=== PATIENT | male | born 1955 | race Caucasian/White ===

== ENCOUNTER 2020-09-26 14:35 | Inpatient (IN) | payer OTHER ==
[~2020-09-26] VITALS: Ht 172.7 cm
[~2020-09-26 14:35] MED LIST: COZAAR25 MG; GLIPIZIDE5 MG; METFORMIN HCL500 MG; PLAVIX75 MG; ZOCOR20 MG
[2020-09-26] MEDS ORDERED: LANTUS SOL100 UNIT/1 SUBCUTANEO (15:19)
[2020-09-26] MEDS ORDERED: HUMALOG100 UNIT/2 SUBCUTANEO (15:20)
[2020-09-30] MEDS ORDERED: OMEPRAZOLE20 MG (13:52)
[2020-09-30] MEDS ORDERED: ST. JOSEPH ASPI81 M2 (13:52)
[2020-09-30] MEDS ORDERED: EZETIMIBE10 MG (13:52)
[2020-09-30] MEDS ORDERED: QUETIAPINE FUMA50 MG (13:52)
[2020-09-30] MEDS ORDERED: VITAMIN D350 MC3 (13:52)
[2020-10-26] MEDS ORDERED: INTESTINEX680 M1 PO (11:57)
[2020-10-26] MEDS ORDERED: FERROUS SU220 MG/5 M PO (11:57)
[2020-10-26] MEDS ORDERED: APETIGEN L790 MG/15 PO (11:58)
[2020-10-26] MEDS ORDERED: GABAPENTIN100 MG PO (11:59)
== END 2020-10-26 19:49 | DRG 624 ==
LOC: ER 14:35 → SEC-K 23:11 → SURH 09-27 00:53
PROVIDERS: ADMIT Internal Medicine; ATTEND Internal Medicine
PROC: CW2D1ZZ Tomographic (Tomo) Nuclear Medicine Imaging of Lower Extremity using Technetium 99m (Tc-99m) (ICD-10-PCS; 2020-09-27)
PROC: 0JBM0ZZ Excision of Left Upper Leg Subcutaneous Tissue and Fascia, Open Approach (ICD-10-PCS; principal; 2020-09-28)
PROC: 0JBL0ZZ Excision of Right Upper Leg Subcutaneous Tissue and Fascia, Open Approach (ICD-10-PCS; 2020-09-28)
PROC: 30233N1 Transfusion of Nonautologous Red Blood Cells into Peripheral Vein, Percutaneous Approach (ICD-10-PCS; 2020-10-01)
PROC: 0JBM0ZZ Excision of Left Upper Leg Subcutaneous Tissue and Fascia, Open Approach (ICD-10-PCS; 2020-10-08)
PROC: 0JBL0ZZ Excision of Right Upper Leg Subcutaneous Tissue and Fascia, Open Approach (ICD-10-PCS; 2020-10-08)
PROC: 0HBJXZZ Excision of Left Upper Leg Skin, External Approach (ICD-10-PCS; 2020-10-16)
PROC: 0HBHXZZ Excision of Right Upper Leg Skin, External Approach (ICD-10-PCS; 2020-10-23)
PROC: 02HV33Z Insertion of Infusion Device into Superior Vena Cava, Percutaneous Approach (ICD-10-PCS; 2020-10-23)
DX: E11.69 Type 2 diabetes mellitus with other specified complication (principal); L89.224 Pressure ulcer of left hip, stage 4; L89.213 Pressure ulcer of right hip, stage 3; E11.65 Type 2 diabetes mellitus with hyperglycemia; L89.210 Pressure ulcer of right hip, unstageable; L89.220 Pressure ulcer of left hip, unstageable; L89.152 Pressure ulcer of sacral region, stage 2; L89.322 Pressure ulcer of left buttock, stage 2; D50.0 Iron deficiency anemia secondary to blood loss (chronic); R53.81 Other malaise; Z74.01 Bed confinement status; Z79.4 Long term (current) use of insulin; I11.0 Hypertensive heart disease with heart failure; I25.10 Atherosclerotic heart disease of native coronary artery without angina pectoris; Z86.73 Personal history of transient ischemic attack (TIA), and cerebral infarction without residual deficits; Z20.822 Contact with and (suspected) exposure to COVID-19

== ENCOUNTER → 2020-11-22 | Emergency (ER) | payer OTHER ==
[~2020-11-22] VITALS: Ht 167.6 cm; Wt 40.8 kg
[~2020-11-22] MED LIST changes: +APETIGEN L790 MG/15 PO; +EZETIMIBE10 MG; +FERROUS SU220 MG/5 M PO; +GABAPENTIN100 MG PO; +HUMALOG100 UNIT/2 SUBCUTANEO; +INTESTINEX680 M1 PO; +LANTUS SOL100 UNIT/1 SUBCUTANEO; +OMEPRAZOLE20 MG; +QUETIAPINE FUMA50 MG; +ST. JOSEPH ASPI81 M2; +VITAMIN D350 MC3
== END | disposition expired ==
LOC: ER 17:56 → CPU-OBS 18:08 → ER 18:08